=== PATIENT | female | born 1980 ===

== ENCOUNTER 2018-09-10 09:20 | Outpatient (CLI) | payer SELFPAY | END 2018-09-10 09:21 | disposition home or self-care (01) | LOC: C.USIC 09:21 | DX: N13.30 Unspecified hydronephrosis (principal); N64.4 Mastodynia ==

== ENCOUNTER 2018-09-14 08:01 | Outpatient (CLI) | payer SELFPAY | END 2018-09-14 08:02 | disposition home or self-care (01) | LOC: C.LAB 08:01 ==

== ENCOUNTER 2018-09-16 09:33 | Outpatient (CLI) | payer SELFPAY | END 2018-09-16 09:34 | disposition home or self-care (01) | LOC: C.USH 09:33 ==